=== PATIENT | male | born 1950 | race Two or more races ===

== ENCOUNTER 2019-09-16 00:15 | Emergency (ER) | payer OTHER ==
[~2019-09-16] VITALS: Ht 170.2 cm; Wt 67.1 kg
[2019-09-16] MEDS ORDERED: DICY20TA PO (02:51)
[2019-09-16] MEDS ORDERED: PEPCID AC20 MG PO (02:51)
== END 2019-09-16 03:03 | disposition home or self-care (01) ==
LOC: ER 00:15
DX: R10.13 Epigastric pain (principal); K29.60 Other gastritis without bleeding